=== PATIENT | male | born 1960 | race Caucasian/White ===

== ENCOUNTER → 2021-09-13 | Outpatient (CLI) | payer MEDICARE ==
[2021-09-13 09:15] LABS: HEMOGLOBIN 13.6 gm/dl (14.0-17.5); RED BLOOD COUNT 4.75 M/UL (4.20-5.50); WHITE BLOOD COUNT 8.6 K/UL (4.5-11.0)
[2021-09-14 08:13] LABS: CALCIUM, SERUM 9.6 mg/dL (8.7-10.2); CREATININE, SERUM 0.93 mg/dL (0.76-1.27); POTASSIUM, SERUM 4.8 mmol/L (3.5-5.2)
== END ==
LOC: LAB 08:30
PROVIDERS: Physician Assistant
DX: R94.39 Abnormal result of other cardiovascular function study (principal); R07.2 Precordial pain; R06.02 Shortness of breath
CPT/HCPCS: 36415; 80048; 85025